=== PATIENT | male | born 1985 | race Caucasian/White ===

== ENCOUNTER 2017-04-05 19:59 | Emergency (ER) | payer BC ==
--- NOTE | ~2017-04-05 | ER ---
ADMIT: 04/05/2017 RM/LOC: ER [facility] MR#: [id number] [address] [id number] [address] [place] [address] Emergency Room Report SEX: M AGE: 31 : 1985 DATE: 04/05/2017 ADDENDUM: This patient comes into the ER because he has had abdominal pain for the last week. He also has had frequent vomiting, loss of appetite and today he started having itchy, scratchy throat. He states over the last month he feels like his abdomen is just not the way that it normally is and he just does not feel hungry. He does have some issues with constipation. He says his stool is very hard, but he does go every day. On physical exam, all his pain is in the left side of his abdomen. There is no rebound, tenderness, or guarding. No tenderness to percussion from either flank area. CBC, BMP, and urinalysis were normal. KUB showed a lot of stool. DISCUSSION: I did talk to the patient at length the results of our labs. I also showed him the x-ray. He does not really think that this pain is caused by constipation. He says it feels like a different type of pain. The patient did not want me to do a CAT scan, just wanted me to give him medication that would make him feel better. He has been able to eat and has had no vomiting, diarrhea, or fevers. I told him that we could try doing some mag citrate, and I gave him the number to the surgeon for a possible EGD. DIAGNOSES: 1. Constipation. 2. Abdominal pain. KRANTHI Laird / Mayank Stokes MD / vijay JOB #: [id number] CC: Mayank Stokes MD, Attending Physician UNKNOWN, Family Physician
== END 2017-04-05 22:30 | disposition home or self-care (01) ==
LOC: ER 19:59
DX: K59.00 Constipation, unspecified (principal); F17.210 Nicotine dependence, cigarettes, uncomplicated